=== PATIENT | male | born 1940 | race Hispanic/Latino ===

== ENCOUNTER 2017-06-28 05:46 | Day surgery (SDC) | payer MEDICARE ==
[2017-06-28 06:58] LABS: Basophils % (Auto) 1.3 % (0.0-1.8); Hematocrit 35.8 % (35.5-45.6); Hemoglobin 11.2 gm/dl (11.8-15.2); Mean Corpuscular HGB Conc 31 % (32-34); Mean Corpuscular Hemoglobin 24 pg (28-32); Mean Corpuscular Volume 75 fl (84-94); Platelet Count 318 K/mm3 (140-440); Red Blood Count 4.78 M/mm3 (3.65-5.03); Red Cell Distribution Width 17.1 % (13.2-15.2); White Blood Count 8.4 K/mm3 (4.5-11.0)
[2017-06-28] MEDS ORDERED: NACL 0.9% 500 ML 500 ML IV SCH (07:00)
[2017-06-28 07:06] LABS: Anion Gap 16 mmol/L; BUN/Creatinine Ratio 10; Blood Urea Nitrogen 11 mg/dL (9-20); Calcium 8.6 mg/dL (8.4-10.2); Carbon Dioxide 24 mmol/L (22-30); Chloride 99.9 mmol/L (98-107); Glucose 136 mg/dL (75-100); Potassium 4.1 mmol/L (3.6-5.0); Sodium 136 mmol/L (137-145)
[2017-06-28 07:08] LABS: INR 1.15 (0.87-1.13); Partial Thromboplastin Time 29.3 Sec. (24.2-36.6)
[2017-06-28] MEDS ORDERED: ECOTRIN PO ONE (07:10)
[2017-06-28] MEDS ORDERED: SUBLIMAZE ONE (08:34)
[2017-06-28] MEDS ORDERED: HEPARIN 10,000 UNITS/10 ML ONE ×2 (08:34→10:18)
[2017-06-28] MEDS ORDERED: VERSED ONE (08:34)
[2017-06-28] MEDS ORDERED: HEPARIN/NS 5000 UNIT/500ML(CATH LAB) 1,500 ML IR ONE (08:34)
[2017-06-28] MEDS ORDERED: XYLOCAINE 2% INFILTRATI ONE (08:35)
[2017-06-28] MEDS ORDERED: LASIX IV ONE (10:32)
--- NOTE | 2017-06-28 10:36 | Discharge Summary ---
Short Stay Discharge Plan Activity: advance as tolerated Weight Bearing Status: Partial Weight Bearing Diet: low fat, low cholesterol, low salt, diabetic Wound: keep clean and dry Special Instructions: restrict fluid intake to (1.5liters/day), record daily weights, no heavy lifting (3 days), hold Metformin (for 48hrs only) Additional Instructions: HOLD METFORMIN for 48hrs ONLY. OK to resume Coumadin at usual dose, INR check in 5-7 days. Follow up with: ALVAREZ GABRIEL MD [Primary Care Provider] - 7 Days LIDIA PEDRAZA MD [Staff Physician] - 7 Days
--- NOTE | 2017-06-28 10:51 | Cardiac Catherization Report ---
CARDIAC CATHETERIZATION REPORT REASON FOR PROCEDURE: The patient is a 77-year-old man with chronic atrial fibrillation. As a result of progressive exertional dyspnea and fatigue, he was recommended for right and left heart catheterization. PROCEDURES PERFORMED: 1. Right heart catheterization. 2. Left heart catheterization. 3. Left ventricular angiography. 4. Selective right and left coronary angiography. The patient was prepped and draped in a sterile fashion after informed consent. Right femoral artery and vein were entered using Seldinger technique. A 6-[place] sheath was placed in the artery and an 8-[place] sheath was placed in the vein. A [place]Hollie catheter was advanced to the pulmonary artery position. A pigtail catheter was advanced to the left ventricle. Cardiac output was measured using thermodilution. Following that, simultaneous right and left heart filling pressures were recorded. The right heart catheter was then withdrawn and right heart pressures were recorded on pullback. The pigtail catheter was then used to perform left ventricle angiography. Following this, the pigtail catheter was withdrawn across the aortic valve and transaortic gradient was recorded. Finally, selective left and right coronary angiography was performed using #4 right and left Steven catheters. The catheters were then removed. The patient was returned to the postprocedure unit in stable condition. The sheaths were removed. Manual compression was used to achieve hemostasis. FINDINGS: HEMODYNAMICS: The mean right atrial pressure was 30. Right ventricular pressure was 75/30. Pulmonary artery pressure was 70/45. The mean pulmonary artery wedge pressure was 40. Left ventricular end-diastolic pressure was 35 to 40. Cardiac output was 3.43 liters per minute. Ascending aortic pressure was 151/89. There was no significant pressure gradient on pullback across the aortic valve. CORONARY ANGIOGRAPHY: There was mild ostial narrowing of the left main coronary artery. Following this, there was diffuse mild to moderate atherosclerosis of the mid left anterior descending artery and diffuse mild to moderate atherosclerosis of the diagonal branches of the LAD. No severe focal obstructive lesions were noted. The circumflex was a large system, with several terminal posterior left ventricular branches. This vessel similarly contained diffuse mild to moderate atherosclerosis affecting the AV groove vessel, the obtuse marginals and the posterolateral branches. The right coronary artery was a relatively small caliber, but dominant vessel. There was mild ostial disease. Otherwise, this vessel was free of significant disease. The right coronary terminated in a medium sized right posterior descending branch. The left ventricle was severely dilated. There was severe left ventricular systolic dysfunction, diffuse hypokinesis. Left ventricular ejection fraction estimated at 15% to 20%. CONCLUSION: 1. Marked elevation in right and left heart filling pressures. 2. Severe pulmonary hypertension. 3. Diffuse mild to moderate nonobstructive 3-vessel coronary disease. 4. Severe, predominantly nonischemic cardiomyopathy, left ventricular ejection fraction 15% to 20%. RECOMMENDATION: 1. Aggressive risk factor modification. 2. Medical therapy for severe nonischemic cardiomyopathy and systolic heart failure. 3. Pulmonary medicine consultation and evaluation of severe pulmonary hypertension and right heart volume pressure overload. JOB# [id number] NATALIE/NTS
[2017-06-28] MEDS ORDERED: NACL 0.9% 1000 ML 1,000 ML IV SCH (11:00)
[2017-06-28] MEDS ORDERED: LASIX ONE (13:19)
[2017-06-28 14:24] VITALS: BP 123/80
== END 2017-06-28 15:40 | disposition home or self-care (01) ==
LOC: CATHLABREC 05:46
PROVIDERS: ATTEND Internal Medicine Cardiovascular Disease
DX: I25.10 Atherosclerotic heart disease of native coronary artery without angina pectoris (principal); I11.0 Hypertensive heart disease with heart failure; I50.20 Unspecified systolic (congestive) heart failure; I27.20 Pulmonary hypertension, unspecified; I42.9 Cardiomyopathy, unspecified; I48.2 Chronic atrial fibrillation; E11.9 Type 2 diabetes mellitus without complications; E78.5 Hyperlipidemia, unspecified; M19.90 Unspecified osteoarthritis, unspecified site; Z79.84 Long term (current) use of oral hypoglycemic drugs; Z79.01 Long term (current) use of anticoagulants; Z87.891 Personal history of nicotine dependence
CPT/HCPCS: 36415; 80048; 85025; 85610; 85730; 93005; 93010; 93460; 96374; 99156; 99157; C1769; C1894; J1644; J1940; J2250; J3010; J7040; Q9967

== ENCOUNTER 2017-09-29 14:43 | Emergency (ER) | payer MEDICARE ==
[2017-09-29] MEDS ORDERED: SODIUM BICARBONATE IV ONE (14:46)
[2017-09-29] MEDS ORDERED: ADRENALIN ONE (14:46)
[2017-09-29] MEDS ORDERED: ATROPINE 0.1% (CARDIAC) ONE (14:46)
[2017-09-29] MEDS ORDERED: INTROPIN DRIP 800 MG/D5W 250 ML IV ONE (14:46)
--- NOTE | 2017-09-29 14:59 | Emergency Department Report ---
HPI - General Chief Complaint: Cardiac Arrest/CPR Time Seen by Provider: 09/29/17 14:52 - HPI HPI: Room 2 The patient is a 77-year-old male presenting with a chief complaint of cardiac arrest. Per EMS the patient was at his primary physician's office when he collapsed. Upon EMS arrival patient was found to be in PEA. Patient was intubated with a Combitube and ACLS protocols initiated. EMS states the patient went for PA to asystole back to PEA but never regained a pulse. Arrival to the ED the Combitube was removed and the patient was intubated by an 8.0 ET tube by myself. Patient was protocols were continued with return of spontaneous circulation Location: Cardiovascular system Duration: [See above] Quality: [See above] Severity: [See above] Modifying factors: [see above] Context: [see above] Mode of transportation: [not driving] ED Past Medical Hx - Past Medical History Hx Hypertension: Yes Hx Diabetes: Yes Hx Renal Disease: Yes Additional medical history: Afib, hyperlipidemia - Surgical History Additional Surgical History: back, BL wrist - Social History Smoking Status: Former Smoker - Medications Home Medications: Home Medications Medication Instructions Recorded Confirmed Last Taken Type Calcitriol [Rocaltrol] 0.5 mcg PO QDAY 09/07/15 06/28/17 06/27/17 History Diltiazem HCl [Diltiazem 24Hr ER] 180 mg PO QDAY 09/07/15 06/28/17 06/27/17 History Glimepiride 4 mg PO BID 09/07/15 06/28/17 06/27/17 History Lisinopril 40 mg PO QDAY 09/07/15 06/28/17 06/27/17 History Quetiapine Fumarate [SEROquel] 50 mg PO QDAY 09/07/15 06/28/17 06/27/17 History Warfarin Sodium 5 mg PO QDAY 09/07/15 06/28/17 06/24/17 History AtorvaSTATin [Lipitor] 20 mg PO QDAY 06/28/17 06/28/17 06/27/17 History Loratadine [Claritin] 10 mg PO DAILY 06/28/17 06/28/17 06/27/17 History Meclizine [Antivert] 25 mg PO BID PRN 06/28/17 06/28/17 06/27/17 History Pantoprazole [Protonix TAB] 40 mg PO QDAY 06/28/17 06/28/17 06/27/17 History Simethicone [Gas Relief] 80 mg PO QDAY 06/28/17 06/28/17 06/27/17 History ED Review of Systems ROS: Stated complaint: CARDIAC ARREST Other details as noted in HPI ED Course - Reevaluation(s) Reevaluation #1: 09/29/17 15:44 Patient arrested for the fourth time. ACLS protocols continued without return of spontaneous circulation. Patient - Consultations Consultation #1: 09/29/17 14:59 Patient was sent to cardiology 09/29/17 15:[address] Graham-does not believe EKG represents a STEMI. Recommends dopamine with dobutamine as necessary. Recommends consulting Dr. Ethan Vicente Consultation #2: 09/29/17 15:21 Dr. Ethan Vicente paged- case discussed with Nilda - Intubation Time Out Performed: No Sedative: none Laryngoscope: Sheri Size: 3 ET Tube Size: 8 Tube Secured Depth (cm): 24 Tube Secured Location: lips Tube Placement Confirmation: equal breath sounds bilat, no breath sounds over epi, confirmation by capnometr Patient Tolerated Procedure: no complications Intubation Complications: none ED Medical Decision Making - Lab Data Laboratory Tests 09/29/17 15:22 CK-MB (CK-2) 3.3 Troponin T < 0.010 NT-Pro-B Natriuret Pep 4406 H - EKG Data -: EKG Interpreted by Me EKG shows normal: sinus rhythm Rate: normal - EKG Data When compared to previous EKG there are: changes noted 09/29/17 15:26 ST depression in leads V2, V3, Lead 1 - Radiology Data Radiology results: report reviewed (chest x-ray), image reviewed (chest x-ray, KUB) interpreted by me: Chest x-ray-ET tube in place. Pulmonary edema [facility] [address] [place] [address] XRay Report Signed Patient: DANYELL DORADO MR#: [id number] : 1940 Acct:[id number] Age/Sex: 77 / M ADM Date: 09/29/17 Loc: ED Attending Dr: Ordering Physician: ESTEBAN RASMUSSEN MD Date of Service: 09/29/17 Procedure(s): XR chest 1V ap Accession Number(s): [id number] cc: ESTEBAN RASMUSSEN MD Fluoro Time In Minutes: Single view chest: History: Cardiac arrest. Findings: Cardiomegaly. Trachea is midline. Tip of endotracheal tube above the level of ashley. Pulmonary venous congestion bilaterally with bilateral diffuse infiltrates. No pleural effusion. Impression: Probable pulmonary edema. Less likely diffuse pneumonia. Transcribed By: PTP Dictated By: EAGLE ROSALES MD Electronically Authenticated By: EAGLE ROSALES MD Signed Date/Time: 09/29/17 152 DD/ 1519 TD/TT: 09/29/17 152 [facility] [address] [place] [address] XRay Report Signed Patient: DANYELL DORADO MR#: [id number] : 1940 Acct:[id number] Age/Sex: 77 / M ADM Date: 09/29/17 Loc: ED Attending Dr: Ordering Physician: ESTEBAN RASMUSSEN MD Date of Service: 09/29/17 Procedure(s): XR abdomen 1V ap Accession Number(s): [id number] cc: ESTEBAN RASMUSSEN MD Fluoro Time In Minutes: Single view abdomen: History: OG placement. Findings: The tip of the feeding tube is noted in the stomach. 2 distended loops of small bowel. Impression: Tip of feeding tube in stomach. Transcribed By: PTP Dictated By: EAGLE ROSALES MD Electronically Authenticated By: EAGLE ROSALES MD Signed Date/Time: 09/29/17 152 DD/ 1520 TD/TT: 09/29/17 1520 - Differential Diagnosis cardiac arrest Critical care attestation.: If time is entered above; I have spent that time in minutes in the direct care of this critically ill patient, excluding procedure time. ED Disposition Clinical Impression: Cardiac arrest Disposition: Z-41 HOSPICE- MED FAC Is pt being admited?: Yes Does the pt Need Aspirin: Yes Condition: Poor Time of Disposition: 15:47 (patient )
[2017-09-29] MEDS ORDERED: DOBUTREX DRIP 500MG/D5W 250ML 500 MG/250 ML BAG IV ONE (15:23)
[2017-09-29] MEDS ORDERED: ASPIRIN PR ONE (15:27)
[2017-09-29 15:30] LABS: Mean Corpuscular HGB Conc 29 % (32-34); Mean Corpuscular Volume 74 fl (84-94); Platelet Count 200 K/mm3 (140-440); Red Blood Count 5.32 M/mm3 (3.65-5.03)
--- NOTE | 2017-09-29 15:39 | XRay Report ---
Single view abdomen: History: OG placement. Findings: The tip of the feeding tube is noted in the stomach. 2 distended loops of small bowel. Impression: Tip of feeding tube in stomach.
--- NOTE | 2017-09-29 15:39 | XRay Report ---
Single view chest: History: Cardiac arrest. Findings: Cardiomegaly. Trachea is midline. Tip of endotracheal tube above the level of ashley. Pulmonary venous congestion bilaterally with bilateral diffuse infiltrates. No pleural effusion. Impression: Probable pulmonary edema. Less likely diffuse pneumonia.
[2017-09-29] MEDS ORDERED: INTROPIN DRIP 800 MG/D5W 250 ML 800 MG/250 ML BAG IV ONE (15:41)
[2017-09-29 15:49] LABS: Creatine Kinase MB 3.3 ng/mL (0.0-4.0); INR 3.52 (0.87-1.13)
[2017-09-29 15:50] LABS: Alanine Aminotransferase 61 units/L (7-56); Albumin 2.8 g/dL (3.9-5); BUN/Creatinine Ratio 11; Blood Urea Nitrogen 16 mg/dL (9-20); Calcium 8.9 mg/dL (8.4-10.2); Hemolysis Index 59; Partial Thromboplastin Time 44.3 Sec. (24.2-36.6)
[2017-09-29 16:03] LABS: Hematocrit 39.3 % (35.5-45.6); Hemoglobin 11.3 gm/dl (11.8-15.2); Mean Corpuscular Hemoglobin 21 pg (28-32); Red Cell Distribution Width 23.1 % (13.2-15.2)
[2017-09-29 17:39] LABS: Total Cells Counted 100
[2017-09-29 17:40] LABS: Acanthocytes Few; Band Neutrophils # (Manual) 0.5 K/mm3; Basophils % (Manual) 0 % (0.0-1.8); Eosinophils % (Manual) 0 % (0.0-4.3); Schistocytes Few
[2017-09-29 17:42] LABS: Platelet Estimate Consistent w Auto; Tear Drop Cells Few
== END 2017-09-29 17:43 ==
LOC: ED 14:43
DX: I46.9 Cardiac arrest, cause unspecified (principal); I12.9 Hypertensive chronic kidney disease with stage 1 through stage 4 chronic kidney disease, or unspecified chronic kidney disease; E11.22 Type 2 diabetes mellitus with diabetic chronic kidney disease; N18.9 Chronic kidney disease, unspecified; I48.91 Unspecified atrial fibrillation; E78.5 Hyperlipidemia, unspecified; Z87.891 Personal history of nicotine dependence
CPT/HCPCS: 36415; 71045; 74018; 80053; 82550; 82553; 83880; 84484; 85007; 85025; 85610; 85730; 92950; 93005; 93010; 99285; J0171; J0461; J1250; J1265